=== PATIENT | male | born 1980 | race Caucasian/White ===

== ENCOUNTER 2016-07-25 16:23 | Inpatient (IN) | payer MEDICAID, OTHER ==
[~2016-07-25] VITALS: Ht 193 cm; Wt 90.0 kg
[2016-07-25] MEDS ORDERED: SERT100T12 PO (16:37)
[2016-07-25] MEDS ORDERED: BACL10TA PO (16:37)
[2016-07-25] MEDS ORDERED: DIVA250T25 PO (16:37)
[2016-07-25] MEDS ORDERED: MET500 PO (16:37)
[2016-07-25] MEDS ORDERED: ACYC200C PO (16:37)
[2016-07-25] MEDS ORDERED: TRAZ-147 PO (16:37)
[2016-07-25] MEDS ORDERED: QUET200T PO (16:37)
[2016-07-25 16:46] LABS: BASOPHILS # (AUTO) 0.06 K/uL (0.00-0.20); BASOPHILS % (AUTO) 0.8 % (0.0-2.0); EOSINOPHILS # (AUTO) 0.04 K/uL (0.00-0.70); EOSINOPHILS % (AUTO) 0.45 % (1.0-6.0); HEMOGLOBIN 15.4 g/dL (13.5-17.5); LYMPHOCYTES # (AUTO) 2.8 K/uL (1.0-4.8); LYMPHOCYTES % (AUTO) 34.6 % (22.0-44.0); MEAN CORPUSCULAR HEMOGLOBIN 30.9 pg (26.0-34.0); MEAN CORPUSCULAR HGB CONC 32.8 G/dL (31.0-37.0); MEAN CORPUSCULAR VOLUME 94 fL (80-100); MONOCYTES # (AUTO) 0.5 K/uL (0.1-1.0); MONOCYTES % (AUTO) 6.7 % (2.0-9.0); NEUTROPHILS # (AUTO) 4.6 K/uL (1.8-7.7); NEUTROPHILS % (AUTO) 57.5 % (40.0-70.0); PLATELET COUNT (AUTO) 206 K/uL (150-450); RED BLOOD CELL COUNT(AUTO) 4.99 MIL/uL (4.50-5.90); RED CELL DISTRIBUTION WIDTH 13.9 % (11.5-14.5)
[2016-07-25 17:26] LABS: ANION GAP 12 mmol/L (8-16); CALCIUM, TOTAL 8.4 mg/dL (8.8-10.5); CARBON DIOXIDE 28 mmol/L (22-29); CHLORIDE 104 mmol/L (98-107); CREATININE 1.02 mg/dL (0.60-1.30); GLOMERULAR FILTR. RATE CALC > 60 mL/min (>60); POTASSIUM 3.4 mmol/L (3.5-5.1); SODIUM SERUM 144 mmol/L (136-145); UREA NITROGEN, BLOOD 6 mg/dL (7-18)
[2016-07-25 17:33] LABS: ALANINE AMINOTRANSFERASE 41 U/L (12-78); ALBUMIN 4.3 g/dL (3.4-5.0); ASPARTATE AMINOTRANSFERASE 24 U/L (15-37); BILIRUBIN,TOTAL 0.4 mg/dL (0.1-1.0); TOTAL PROTEIN, SERUM 7.8 g/dL (6.4-8.2)
[2016-07-25] MEDS ORDERED: LORazepam 2 MG/ML VIAL IM ONE (18:15)
[2016-07-25] MEDS ORDERED: ZOLPIDEM TARTRATE 10 MG TABLET PO PRN (18:15)
[2016-07-25] MEDS ORDERED: HALOPERIDOL LACTATE 5 MG/ML VIAL IM ONE (18:15)
[2016-07-25] MEDS ORDERED: POTASSIUM CHLORIDE 20 MEQ ER TABLET PO ONE (18:30)
[2016-07-26] VITALS (9 sets, daily range): BP systolic 123–143; BP diastolic 76–91
[2016-07-26] MEDS: LORazepam 2 MG TABLET PO PRN ×5 (03:38→17:44)
[2016-07-26 07:41] LABS: CHOL/HDL RATIO 2.6 (4.2-7.3)
[2016-07-26] MEDS: NICOTINE 14 MG/24 HOUR PATCH TD SCH (08:53)
[2016-07-26] MEDS: HALOPERIDOL 5 MG TABLET PO PRN ×2 (08:56→16:16)
[2016-07-26] MEDS ORDERED: ACETAMINOPHEN 325 MG TABLET PO PRN ×2 (11:15→22:00)
[2016-07-26] MEDS: SERTRALINE HCL 100 MG TABLET PO SCH (12:02)
[2016-07-26] MEDS: DIVALPROEX SODIUM 500 MG DR TABLET PO SCH ×2 (12:02→16:15)
[2016-07-26] MEDS ORDERED: LOPERAMIDE HCL 2 MG CAPSULE PO PRN (14:00)
[2016-07-26] MEDS ORDERED: HydrOXYzine PAMOATE 50 MG CAPSULE PO PRN (14:00)
[2016-07-26] MEDS ORDERED: GuaiFENesin/D-METHORPHAN [SUGAR-FREE] 200-20MG/10 ML SYRUP UDCUP PO PRN (14:00)
[2016-07-26] MEDS ORDERED: CYANOCOBALAMIN 1,000 MCG/ML VIAL IM ONE (14:00)
[2016-07-26] MEDS: FOLIC ACID 1 MG TABLET PO SCH (14:19)
[2016-07-26] MEDS: MULTIVITAMINS WITH MINERALS, THERAPEUTIC TABLET PO SCH (14:19)
[2016-07-26] MEDS: THIAMINE HCL 100 MG TABLET PO SCH (16:15)
[2016-07-26] MEDS: QUEtiapine FUMARATE 200 MG TABLET PO SCH (20:22)
[2016-07-26] MEDS ORDERED: POTASSIUM CHLORIDE 10 MEQ ER TABLET PO ONE (22:00)
[2016-07-27] VITALS (7 sets, daily range): BP systolic 123–139; BP diastolic 68–86
[2016-07-27] MEDS ORDERED: LORazepam 2 MG TABLET PO PRN (07:00)
[2016-07-27 08:28] LABS: HEMOGLOBIN A1C 5.6 % (4.5-6.2)
[2016-07-27 08:47] LABS: POTASSIUM 3.5 mmol/L (3.5-5.1); THYROID STIMULATING HORMONE 1.51 uIU/mL (0.36-3.74)
[2016-07-27] MEDS: FOLIC ACID 1 MG TABLET PO SCH (08:56)
[2016-07-27] MEDS: SERTRALINE HCL 100 MG TABLET PO SCH (08:56)
[2016-07-27] MEDS: MULTIVITAMINS WITH MINERALS, THERAPEUTIC TABLET PO SCH (08:56)
[2016-07-27] MEDS: NICOTINE 14 MG/24 HOUR PATCH TD SCH (08:56)
[2016-07-27] MEDS: THIAMINE HCL 100 MG TABLET PO SCH ×2 (08:56→16:34)
[2016-07-27] MEDS: LORazepam 2 MG TABLET PO SCH ×3 (08:56→16:43)
[2016-07-27] MEDS: DIVALPROEX SODIUM 500 MG DR TABLET PO SCH ×2 (08:56→16:34)
[2016-07-27] MEDS: HALOPERIDOL 5 MG TABLET PO PRN ×2 (12:36→16:43)
[2016-07-27] MEDS: QUEtiapine FUMARATE 200 MG TABLET PO SCH (20:10)
[2016-07-27] MEDS: IBUPROFEN 400 MG TABLET PO PRN (21:05)
[2016-07-28 00:52] VITALS: BP 108/60
[2016-07-28 08:09] VITALS: BP 111/72
[2016-07-28] MEDS: NICOTINE 14 MG/24 HOUR PATCH TD SCH (08:32)
[2016-07-28] MEDS: DIVALPROEX SODIUM 500 MG DR TABLET PO SCH ×2 (08:33→16:28)
[2016-07-28] MEDS: MULTIVITAMINS WITH MINERALS, THERAPEUTIC TABLET PO SCH (08:33)
[2016-07-28] MEDS: FOLIC ACID 1 MG TABLET PO SCH (08:33)
[2016-07-28] MEDS: SERTRALINE HCL 100 MG TABLET PO SCH (08:33)
[2016-07-28] MEDS: LORazepam 2 MG TABLET PO SCH ×3 (08:33→16:28)
[2016-07-28] MEDS: THIAMINE HCL 100 MG TABLET PO SCH ×2 (08:33→16:28)
[2016-07-28 13:25] VITALS: BP 125/76
[2016-07-28 14:26] VITALS: BP 122/75
[2016-07-28 16:00] VITALS: BP 122/77
[2016-07-28] MEDS: HALOPERIDOL 5 MG TABLET PO PRN (16:50)
[2016-07-28] MEDS: QUEtiapine FUMARATE 200 MG TABLET PO SCH (20:04)
[2016-07-29 00:39] VITALS: BP 102/64
[2016-07-29] MEDS ORDERED: LORazepam 1 MG TABLET PO PRN (07:00)
[2016-07-29 08:11] VITALS: BP 115/65
[2016-07-29] MEDS: THIAMINE HCL 100 MG TABLET PO SCH (08:23)
[2016-07-29] MEDS: DIVALPROEX SODIUM 500 MG DR TABLET PO SCH (08:23)
[2016-07-29] MEDS: NICOTINE 14 MG/24 HOUR PATCH TD SCH (08:23)
[2016-07-29] MEDS: SERTRALINE HCL 100 MG TABLET PO SCH (08:23)
[2016-07-29] MEDS: MULTIVITAMINS WITH MINERALS, THERAPEUTIC TABLET PO SCH (08:23)
[2016-07-29] MEDS: FOLIC ACID 1 MG TABLET PO SCH (08:24)
[2016-07-29] MEDS ORDERED: LORazepam 1 MG TABLET PO SCH (09:00)
[2016-07-29] MEDS ORDERED: LORazepam 2 MG TABLET PO SCH (09:00)
[2016-07-29 10:18] VITALS: BP 110/67
[2016-07-29] MEDS: IBUPROFEN 400 MG TABLET PO PRN (10:19)
[2016-07-29 11:19] VITALS: BP 112/65
[2016-07-30] MEDS ORDERED: LORazepam 1 MG TABLET PO PRN (07:00)
[2016-07-30] MEDS ORDERED: LORazepam 2 MG TABLET PO SCH (09:00)
== END 2016-07-29 14:40 | disposition home or self-care (01) | DRG 750 ==
LOC: EMS 16:25 → B2S 18:47
PROVIDERS: ADMIT Psychiatry & Neurology Psychiatry
PROC: HZ2ZZZZ Detoxification Services for Substance Abuse Treatment (ICD-10-PCS; principal; 2016-07-26)
DX: F25.1 Schizoaffective disorder, depressive type (principal); R45.851 Suicidal ideations; F10.129 Alcohol abuse with intoxication, unspecified; Y90.8 Blood alcohol level of 240 mg/100 ml or more; F17.200 Nicotine dependence, unspecified, uncomplicated; R00.0 Tachycardia, unspecified; E87.6 Hypokalemia; E78.5 Hyperlipidemia, unspecified; Z88.8 Allergy status to other drugs, medicaments and biological substances
CPT/HCPCS: 83036; 84132; 84443; 96372; 99285; G0480; J1630; J2060; J3420

== ENCOUNTER 2017-04-07 11:29 | Inpatient (IN) | payer MEDICAID, OTHER ==
[~2017-04-07] VITALS: Ht 193 cm; Wt 96.1 kg
[~2017-04-07 11:29] MED LIST: DIVA250T25 PO; QUET200T PO; SERT100T12 PO
[2017-04-07] MEDS ORDERED: LORazepam 0.5 MG TABLET PO ONE (12:15)
[2017-04-07] MEDS ORDERED: SULFAMETHOX/TRIMETH DS 800-160 MG/TABLET PO ONE (12:15)
[2017-04-07] MEDS ORDERED: CEPHALEXIN MONOHYDRATE 500 MG CAPSULE PO ONE (12:15)
[2017-04-07 12:32] LABS: BASOPHILS % (AUTO) 0.3 % (0.0-2.0); EOSINOPHILS % (AUTO) 0.6 % (1.0-6.0); HEMATOCRIT 41.7 % (41-53); HEMOGLOBIN 13.9 g/dL (13.5-17.5); LYMPHOCYTES # (AUTO) 1.7 K/uL (1.0-4.8); LYMPHOCYTES % (AUTO) 24.9 % (22.0-44.0); MEAN CORPUSCULAR HEMOGLOBIN 30.5 pg (26.0-34.0); MEAN CORPUSCULAR HGB CONC 33.3 G/dL (31.0-37.0); MEAN CORPUSCULAR VOLUME 92 fL (80-100); MONOCYTES # (AUTO) 0.7 K/uL (0.1-1.0); MONOCYTES % (AUTO) 10.5 % (2.0-9.0); NEUTROPHILS # (AUTO) 4.4 K/uL (1.8-7.7); NEUTROPHILS % (AUTO) 63.7 % (40.0-70.0); PLATELET COUNT (AUTO) 287 K/uL (150-450); RED BLOOD CELL COUNT(AUTO) 4.55 MIL/uL (4.50-5.90); RED CELL DISTRIBUTION WIDTH 13.8 % (11.5-14.5)
[2017-04-07 12:48] LABS: ANION GAP 7 mmol/L (8-16); CALCIUM, TOTAL 9.4 mg/dL (8.8-10.5); CARBON DIOXIDE 27 mmol/L (22-29); CHLORIDE 98 mmol/L (98-107); CREATININE 1.01 mg/dL (0.60-1.30); GLOMERULAR FILTR. RATE CALC > 60 mL/min (>60); GLUCOSE,RANDOM 91 mg/dL (70-110); POTASSIUM 4.5 mmol/L (3.5-5.1); SODIUM SERUM 132 mmol/L (136-145); UREA NITROGEN, BLOOD 20 mg/dL (7-18)
[2017-04-07 12:52] LABS: ALANINE AMINOTRANSFERASE 37 U/L (12-78); ALBUMIN 3.8 g/dL (3.4-5.0); ALKALINE PHOSPHATASE 56 U/L (46-116); ASPARTATE AMINOTRANSFERASE 32 U/L (15-37); BILIRUBIN,TOTAL 0.4 mg/dL (0.1-1.0); TOTAL PROTEIN, SERUM 7.9 g/dL (6.4-8.2)
[2017-04-07 12:57] LABS: AMPHET/METH SCREEN,URINE NEGATIVE (NEGATIVE); BARBITURATE SCREEN, URINE NEGATIVE (NEGATIVE); BENZODIAZEPINES SCREEN,URINE NEGATIVE (NEGATIVE); CANNABINOID SCREEN,URINE POSITIVE (NEGATIVE); COCAINE SCREEN,URINE NEGATIVE (NEGATIVE); METHADONE SCREEN, URINE NEGATIVE (NEGATIVE); OPIATE SCREEN,URINE NEGATIVE (NEGATIVE)
[2017-04-07 12:59] LABS: PHENCYCLIDINE SCREEN,URINE NEGATIVE (NEGATIVE)
[2017-04-07] MEDS: HALOPERIDOL 5 MG TABLET PO PRN (14:34)
[2017-04-07 15:30] VITALS: BP 119/66
[2017-04-07 16:00] VITALS: BP 120/76
[2017-04-07] MEDS: LORazepam 2 MG TABLET PO PRN (16:22)
[2017-04-07 17:03] VITALS: BP 117/78
[2017-04-07 18:03] VITALS: BP 107/60
[2017-04-07] MEDS ORDERED: MAG HYDROX/AL HYDROX/SIMETH ES 30 ML SUSPENSION UDCUP PO PRN (18:15)
[2017-04-07] MEDS ORDERED: CloNIDine HCL 0.1 MG TABLET PO PRN (18:15)
[2017-04-07] MEDS ORDERED: BENZOCAINE/MENTHOL LOZENGE MM PRN (18:15)
[2017-04-07] MEDS ORDERED: PETROLATUM,WHITE 71 GM JELLY TP PRN (18:15)
[2017-04-07] MEDS ORDERED: MAGNESIUM HYDROXIDE SUSPENSION 30 ML UDCUP PO PRN (18:15)
[2017-04-07] MEDS ORDERED: ALBUTEROL SULFATE HFA 90 MCG/PUFF 8 GM INHALER IH PRN (18:15)
[2017-04-07] MEDS ORDERED: ONDANSETRON HCL 4 MG TABLET PO PRN (18:15)
[2017-04-07] MEDS ORDERED: LOPERAMIDE HCL 2 MG CAPSULE PO PRN (18:15)
[2017-04-07] MEDS ORDERED: BACITRACIN 28.4 GM OINTMENT TP PRN (18:15)
[2017-04-07 19:03] VITALS: BP 110/65
[2017-04-07 20:00] VITALS: BP 123/62
[2017-04-07] MEDS: QUEtiapine FUMARATE 200 MG TABLET PO SCH (20:16)
[2017-04-07] MEDS: DOCUSATE SODIUM 100 MG CAPSULE PO SCH (20:17)
[2017-04-08] MEDS: CEPHALEXIN MONOHYDRATE 500 MG CAPSULE PO SCH ×3 (00:37→16:52)
[2017-04-08 04:01] VITALS: BP 102/62
[2017-04-08 08:25] LABS: HEMOGLOBIN A1C 5.1 % (4.5-6.2)
[2017-04-08] MEDS: DOCUSATE SODIUM 100 MG CAPSULE PO SCH (08:28)
[2017-04-08] MEDS: OMEPRAZOLE 20 MG CAPSULE PO SCH (08:28)
[2017-04-08] MEDS: SULFAMETHOX/TRIMETH DS 800-160 MG/TABLET PO SCH ×2 (08:29→16:52)
[2017-04-08 08:43] LABS: CHOL/HDL RATIO 3.1 (4.2-7.3); FREE T4 (FREE THYROXINE) 0.69 ng/dL (0.76-1.46); THYROID STIMULATING HORMONE 0.87 uIU/mL (0.36-3.74)
[2017-04-08] MEDS ORDERED: DIVALPROEX SODIUM 500 MG DR TABLET PO SCH (09:00)
[2017-04-08] MEDS: LORazepam 2 MG TABLET PO PRN ×2 (09:16→14:56)
[2017-04-08] MEDS: HALOPERIDOL 5 MG TABLET PO PRN ×2 (09:31→14:56)
[2017-04-08] MEDS: QUEtiapine FUMARATE 200 MG TABLET PO SCH ×3 (11:00→20:19)
[2017-04-08] MEDS ORDERED: SODIUM CHLORIDE 1 GM TABLET PO SCH (11:00)
[2017-04-08] MEDS: MUPIROCIN CALCIUM 2% 15 GM CREAM TP SCH (12:22)
[2017-04-08 16:12] VITALS: BP 128/67
[2017-04-08] MEDS: DIVALPROEX SODIUM 500 MG DR TABLET PO SCH (16:52)
[2017-04-08] MEDS ORDERED: SODIUM CHLORIDE 1 GM TABLET PO ONE (17:00)
[2017-04-08] MEDS: TraMADol HCL 50 MG TABLET PO PRN (17:50)
[2017-04-08] MEDS: ZOLPIDEM TARTRATE 10 MG TABLET PO PRN (21:59)
[2017-04-09] MEDS: CEPHALEXIN MONOHYDRATE 500 MG CAPSULE PO SCH ×3 (00:15→16:02)
[2017-04-09 06:43] VITALS: BP 100/68
[2017-04-09] MEDS: SULFAMETHOX/TRIMETH DS 800-160 MG/TABLET PO SCH ×2 (08:41→16:02)
[2017-04-09] MEDS: DIVALPROEX SODIUM 500 MG DR TABLET PO SCH ×2 (08:50→16:02)
[2017-04-09] MEDS: DOCUSATE SODIUM 100 MG CAPSULE PO SCH (08:51)
[2017-04-09] MEDS: OMEPRAZOLE 20 MG CAPSULE PO SCH (08:51)
[2017-04-09] MEDS: MUPIROCIN CALCIUM 2% 15 GM CREAM TP SCH (08:51)
[2017-04-09] MEDS: QUEtiapine FUMARATE 200 MG TABLET PO SCH ×3 (08:51→21:09)
[2017-04-09] MEDS: LORazepam 2 MG TABLET PO PRN ×3 (09:19→21:29)
[2017-04-09] MEDS: HALOPERIDOL 5 MG TABLET PO PRN ×2 (09:19→17:50)
[2017-04-09 09:20] VITALS: BP 112/69
[2017-04-09] MEDS: TraMADol HCL 50 MG TABLET PO PRN ×2 (09:20→16:10)
[2017-04-09 16:06] VITALS: BP 125/80
[2017-04-09 16:07] VITALS: BP 125/80
[2017-04-10] MEDS: CEPHALEXIN MONOHYDRATE 500 MG CAPSULE PO SCH ×4 (00:01→23:42)
[2017-04-10 01:14] VITALS: BP 106/60
[2017-04-10 08:16] VITALS: BP 108/68
[2017-04-10 08:17] VITALS: BP 108/68
[2017-04-10] MEDS: SULFAMETHOX/TRIMETH DS 800-160 MG/TABLET PO SCH ×2 (08:25→16:28)
[2017-04-10] MEDS: DOCUSATE SODIUM 100 MG CAPSULE PO SCH (08:25)
[2017-04-10] MEDS: QUEtiapine FUMARATE 200 MG TABLET PO SCH ×3 (08:25→20:40)
[2017-04-10] MEDS: OMEPRAZOLE 20 MG CAPSULE PO SCH (08:25)
[2017-04-10] MEDS: DIVALPROEX SODIUM 500 MG DR TABLET PO SCH ×2 (08:25→16:28)
[2017-04-10] MEDS: MUPIROCIN CALCIUM 2% 15 GM CREAM TP SCH (08:32)
[2017-04-10] MEDS: LORazepam 2 MG TABLET PO PRN ×2 (08:38→16:08)
[2017-04-10] MEDS: TraMADol HCL 50 MG TABLET PO PRN (08:38)
[2017-04-10] MEDS ORDERED: DIVA500T35 PO (11:53)
[2017-04-10 16:00] VITALS: BP 118/64
[2017-04-10] MEDS: HALOPERIDOL 5 MG TABLET PO PRN (16:08)
[2017-04-10 16:46] VITALS: BP 118/64
[2017-04-10] MEDS: TraZODone HCL 150 MG TABLET PO SCH (20:40)
[2017-04-10] MEDS: ZOLPIDEM TARTRATE 10 MG TABLET PO PRN (20:40)
[2017-04-10 23:41] VITALS: BP 121/68
[2017-04-11 04:00] VITALS: BP 105/67
[2017-04-11] MEDS: HALOPERIDOL 5 MG TABLET PO PRN (04:05)
[2017-04-11] MEDS: LORazepam 2 MG TABLET PO PRN ×2 (04:05→16:03)
[2017-04-11] MEDS: TraMADol HCL 50 MG TABLET PO PRN ×2 (07:13→16:04)
[2017-04-11] MEDS: DIVALPROEX SODIUM 500 MG DR TABLET PO SCH ×2 (08:12→16:02)
[2017-04-11] MEDS: DOCUSATE SODIUM 100 MG CAPSULE PO SCH (08:12)
[2017-04-11] MEDS: CEPHALEXIN MONOHYDRATE 500 MG CAPSULE PO SCH ×2 (08:12→16:02)
[2017-04-11] MEDS: OMEPRAZOLE 20 MG CAPSULE PO SCH (08:12)
[2017-04-11] MEDS: QUEtiapine FUMARATE 200 MG TABLET PO SCH ×3 (08:12→20:31)
[2017-04-11] MEDS: SERTRALINE HCL 100 MG TABLET PO SCH (08:12)
[2017-04-11] MEDS: SULFAMETHOX/TRIMETH DS 800-160 MG/TABLET PO SCH ×2 (08:12→16:02)
[2017-04-11] MEDS: MUPIROCIN CALCIUM 2% 15 GM CREAM TP SCH (08:14)
[2017-04-11 08:18] VITALS: BP 113/64
[2017-04-11 16:00] VITALS: BP 110/60
[2017-04-11 16:04] VITALS: BP 110/60
[2017-04-11] MEDS: TraZODone HCL 150 MG TABLET PO SCH (20:31)
[2017-04-12] MEDS: CEPHALEXIN MONOHYDRATE 500 MG CAPSULE PO SCH ×4 (00:04→23:40)
[2017-04-12 05:51] VITALS: BP 116/80
[2017-04-12] MEDS: DIVALPROEX SODIUM 500 MG DR TABLET PO SCH ×2 (08:32→16:10)
[2017-04-12] MEDS: DOCUSATE SODIUM 100 MG CAPSULE PO SCH (08:32)
[2017-04-12] MEDS: QUEtiapine FUMARATE 200 MG TABLET PO SCH ×3 (08:32→21:10)
[2017-04-12] MEDS: SULFAMETHOX/TRIMETH DS 800-160 MG/TABLET PO SCH ×2 (08:32→16:10)
[2017-04-12] MEDS: SERTRALINE HCL 100 MG TABLET PO SCH (08:32)
[2017-04-12] MEDS: OMEPRAZOLE 20 MG CAPSULE PO SCH (08:33)
[2017-04-12] MEDS: MUPIROCIN CALCIUM 2% 15 GM CREAM TP SCH (08:33)
[2017-04-12 09:23] VITALS: BP 104/61
[2017-04-12 10:00] VITALS: BP 112/68
[2017-04-12] MEDS: HALOPERIDOL 5 MG TABLET PO PRN ×2 (10:00→17:01)
[2017-04-12] MEDS: LORazepam 2 MG TABLET PO PRN ×2 (10:00→17:01)
[2017-04-12] MEDS: TraMADol HCL 50 MG TABLET PO PRN ×2 (10:00→17:01)
[2017-04-12 16:01] VITALS: BP 119/75
[2017-04-12 17:01] VITALS: BP 122/76
[2017-04-12] MEDS: ZOLPIDEM TARTRATE 10 MG TABLET PO PRN (21:09)
[2017-04-12] MEDS: TraZODone HCL 150 MG TABLET PO SCH (21:09)
[2017-04-12 22:39] VITALS: BP 106/59
[2017-04-13 03:08] VITALS: BP 112/63
[2017-04-13] MEDS: TraMADol HCL 50 MG TABLET PO PRN ×3 (03:13→18:42)
[2017-04-13] MEDS: HALOPERIDOL 5 MG TABLET PO PRN ×3 (03:13→16:04)
[2017-04-13] MEDS: DIVALPROEX SODIUM 500 MG DR TABLET PO SCH ×2 (10:16→16:03)
[2017-04-13] MEDS: CEPHALEXIN MONOHYDRATE 500 MG CAPSULE PO SCH ×2 (10:16→16:03)
[2017-04-13] MEDS: DOCUSATE SODIUM 100 MG CAPSULE PO SCH (10:16)
[2017-04-13] MEDS: OMEPRAZOLE 20 MG CAPSULE PO SCH (10:16)
[2017-04-13] MEDS: SERTRALINE HCL 100 MG TABLET PO SCH (10:17)
[2017-04-13] MEDS: QUEtiapine FUMARATE 200 MG TABLET PO SCH ×3 (10:17→20:09)
[2017-04-13] MEDS: LORazepam 2 MG TABLET PO PRN ×2 (10:30→16:04)
[2017-04-13 10:35] VITALS: BP 106/68
[2017-04-13] MEDS: MUPIROCIN CALCIUM 2% 15 GM CREAM TP SCH (10:41)
[2017-04-13] MEDS: ACETAMINOPHEN 325 MG TABLET PO PRN (14:09)
[2017-04-13 18:40] VITALS: BP 116/69
[2017-04-13 19:40] VITALS: BP 120/71
[2017-04-13] MEDS: TraZODone HCL 150 MG TABLET PO SCH (20:10)
[2017-04-13] MEDS: ZOLPIDEM TARTRATE 10 MG TABLET PO PRN (20:37)
[2017-04-14] MEDS: CEPHALEXIN MONOHYDRATE 500 MG CAPSULE PO SCH ×3 (00:48→16:28)
[2017-04-14 01:00] VITALS: BP 118/70
[2017-04-14] MEDS: QUEtiapine FUMARATE 200 MG TABLET PO SCH ×2 (09:27→16:28)
[2017-04-14] MEDS: OMEPRAZOLE 20 MG CAPSULE PO SCH (09:27)
[2017-04-14] MEDS: DOCUSATE SODIUM 100 MG CAPSULE PO SCH (09:28)
[2017-04-14] MEDS: SERTRALINE HCL 100 MG TABLET PO SCH (09:28)
[2017-04-14] MEDS: DIVALPROEX SODIUM 500 MG DR TABLET PO SCH ×2 (09:28→16:28)
[2017-04-14] MEDS: TraMADol HCL 50 MG TABLET PO PRN (09:31)
[2017-04-14] MEDS: HALOPERIDOL 5 MG TABLET PO PRN ×2 (09:32→16:44)
[2017-04-14] MEDS: LORazepam 2 MG TABLET PO PRN ×2 (09:32→16:44)
[2017-04-14 10:33] VITALS: BP 122/72
[2017-04-14 16:50] VITALS: BP 119/75
[2017-04-14] MEDS: TraZODone HCL 150 MG TABLET PO SCH (20:02)
[2017-04-14] MEDS ORDERED: QUEtiapine FUMARATE 300 MG TABLET PO ONE (21:00)
[2017-04-15] MEDS: DIVALPROEX SODIUM 500 MG DR TABLET PO SCH ×2 (08:53→17:19)
[2017-04-15] MEDS: DOCUSATE SODIUM 100 MG CAPSULE PO SCH (08:53)
[2017-04-15] MEDS: QUEtiapine FUMARATE 200 MG TABLET PO SCH ×2 (08:54→17:19)
[2017-04-15] MEDS: OMEPRAZOLE 20 MG CAPSULE PO SCH (08:54)
[2017-04-15] MEDS: SERTRALINE HCL 100 MG TABLET PO SCH (08:55)
[2017-04-15] MEDS: HALOPERIDOL 5 MG TABLET PO PRN ×2 (08:57→18:48)
[2017-04-15] MEDS: TraMADol HCL 50 MG TABLET PO PRN (08:57)
[2017-04-15 08:58] VITALS: BP 98/57
[2017-04-15 09:58] VITALS: BP 102/59
[2017-04-15] MEDS: LORazepam 2 MG TABLET PO PRN ×2 (11:16→18:48)
[2017-04-15 20:05] VITALS: BP 137/80
[2017-04-15] MEDS: TraZODone HCL 150 MG TABLET PO SCH (20:05)
[2017-04-16] VITALS (7 sets, daily range): BP systolic 111–124; BP diastolic 62–79
[2017-04-16] MEDS: ZOLPIDEM TARTRATE 10 MG TABLET PO PRN (02:33)
[2017-04-16] MEDS: QUEtiapine FUMARATE 200 MG TABLET PO SCH ×2 (09:40→16:09)
[2017-04-16] MEDS: DOCUSATE SODIUM 100 MG CAPSULE PO SCH (09:40)
[2017-04-16] MEDS: SERTRALINE HCL 100 MG TABLET PO SCH (09:41)
[2017-04-16] MEDS: OMEPRAZOLE 20 MG CAPSULE PO SCH (09:41)
[2017-04-16] MEDS: DIVALPROEX SODIUM 500 MG DR TABLET PO SCH ×2 (09:41→16:09)
[2017-04-16] MEDS: HALOPERIDOL 5 MG TABLET PO PRN (12:29)
[2017-04-16] MEDS: LORazepam 2 MG TABLET PO PRN ×2 (12:29→20:05)
[2017-04-16] MEDS: BACLOFEN 10 MG TABLET PO SCH (16:10)
[2017-04-16] MEDS: TraZODone HCL 150 MG TABLET PO SCH (20:04)
[2017-04-16] MEDS: HALOPERIDOL 10 MG TABLET PO SCH (20:04)
[2017-04-16] MEDS: ACETAMINOPHEN 325 MG TABLET PO PRN (20:05)
[2017-04-17 00:10] VITALS: BP 120/76
[2017-04-17] MEDS: ZOLPIDEM TARTRATE 10 MG TABLET PO PRN (00:13)
[2017-04-17] MEDS: LORazepam 2 MG TABLET PO PRN ×2 (00:14→17:43)
[2017-04-17 09:08] VITALS: BP 100/53
[2017-04-17] MEDS: OMEPRAZOLE 20 MG CAPSULE PO SCH (09:56)
[2017-04-17] MEDS: DIVALPROEX SODIUM 500 MG DR TABLET PO SCH ×2 (09:56→17:46)
[2017-04-17] MEDS: BACLOFEN 10 MG TABLET PO SCH ×3 (09:56→17:46)
[2017-04-17] MEDS: ACYCLOVIR 800 MG TABLET PO SCH (09:57)
[2017-04-17] MEDS: DOCUSATE SODIUM 100 MG CAPSULE PO SCH (09:57)
[2017-04-17] MEDS: SERTRALINE HCL 100 MG TABLET PO SCH (09:57)
[2017-04-17] MEDS: QUEtiapine FUMARATE 200 MG TABLET PO SCH ×2 (10:01→17:46)
[2017-04-17] MEDS: HALOPERIDOL 5 MG TABLET PO PRN ×2 (11:15→17:43)
[2017-04-17 18:49] VITALS: BP 101/61
[2017-04-17 19:58] VITALS: BP 131/79
[2017-04-17] MEDS: TraMADol HCL 50 MG TABLET PO PRN (19:59)
[2017-04-17] MEDS: TraZODone HCL 150 MG TABLET PO SCH (20:12)
[2017-04-17] MEDS: HALOPERIDOL 10 MG TABLET PO SCH (20:12)
[2017-04-17 20:58] VITALS: BP 124/78
[2017-04-18 00:20] VITALS: BP 123/75
[2017-04-18] MEDS: ZOLPIDEM TARTRATE 10 MG TABLET PO PRN (00:25)
[2017-04-18] MEDS: SERTRALINE HCL 100 MG TABLET PO SCH (08:17)
[2017-04-18] MEDS: DOCUSATE SODIUM 100 MG CAPSULE PO SCH (08:18)
[2017-04-18] MEDS: BACLOFEN 10 MG TABLET PO SCH ×3 (08:18→16:49)
[2017-04-18] MEDS: QUEtiapine FUMARATE 200 MG TABLET PO SCH ×2 (08:18→16:49)
[2017-04-18] MEDS: DIVALPROEX SODIUM 500 MG DR TABLET PO SCH ×2 (08:18→16:49)
[2017-04-18] MEDS: ACYCLOVIR 800 MG TABLET PO SCH (08:18)
[2017-04-18] MEDS: OMEPRAZOLE 20 MG CAPSULE PO SCH (08:19)
[2017-04-18] MEDS: HALOPERIDOL 5 MG TABLET PO PRN ×2 (08:21→16:48)
[2017-04-18] MEDS: LORazepam 2 MG TABLET PO PRN ×2 (08:21→16:49)
[2017-04-18 10:54] VITALS: BP 108/59
[2017-04-18 18:32] VITALS: BP 120/72
[2017-04-18] MEDS: TraZODone HCL 150 MG TABLET PO SCH (21:55)
[2017-04-18] MEDS: HALOPERIDOL 10 MG TABLET PO SCH (21:55)
[2017-04-19] MEDS: ZOLPIDEM TARTRATE 10 MG TABLET PO PRN (00:02)
[2017-04-19] MEDS: LORazepam 2 MG TABLET PO PRN ×3 (00:02→16:05)
[2017-04-19 00:03] VITALS: BP 112/68
[2017-04-19 08:05] VITALS: BP 123/70
[2017-04-19] MEDS: OMEPRAZOLE 20 MG CAPSULE PO SCH (10:08)
[2017-04-19] MEDS: BACLOFEN 10 MG TABLET PO SCH ×3 (10:08→16:05)
[2017-04-19] MEDS: DIVALPROEX SODIUM 500 MG DR TABLET PO SCH ×2 (10:08→16:03)
[2017-04-19] MEDS: DOCUSATE SODIUM 100 MG CAPSULE PO SCH (10:08)
[2017-04-19] MEDS: ACYCLOVIR 800 MG TABLET PO SCH (10:09)
[2017-04-19] MEDS: QUEtiapine FUMARATE 200 MG TABLET PO SCH ×2 (10:09→16:03)
[2017-04-19] MEDS: SERTRALINE HCL 100 MG TABLET PO SCH (10:09)
[2017-04-19] MEDS: HALOPERIDOL 5 MG TABLET PO PRN ×2 (10:10→16:05)
[2017-04-19 17:30] VITALS: BP 110/70
[2017-04-19 20:06] VITALS: BP 129/70
[2017-04-19] MEDS: TraMADol HCL 50 MG TABLET PO PRN (20:07)
[2017-04-19] MEDS: TraZODone HCL 150 MG TABLET PO SCH (20:08)
[2017-04-19] MEDS: HALOPERIDOL 10 MG TABLET PO SCH (20:08)
[2017-04-19 21:06] VITALS: BP 130/78
[2017-04-20 03:15] VITALS: BP 99/66
[2017-04-20] MEDS: LORazepam 2 MG TABLET PO PRN ×3 (03:20→20:25)
[2017-04-20 10:04] VITALS: BP 105/65
[2017-04-20] MEDS: ACYCLOVIR 800 MG TABLET PO SCH (10:58)
[2017-04-20] MEDS: DIVALPROEX SODIUM 500 MG DR TABLET PO SCH ×2 (10:58→16:08)
[2017-04-20] MEDS: QUEtiapine FUMARATE 200 MG TABLET PO SCH ×2 (10:59→16:09)
[2017-04-20] MEDS: DOCUSATE SODIUM 100 MG CAPSULE PO SCH (11:00)
[2017-04-20] MEDS: BACLOFEN 10 MG TABLET PO SCH ×3 (11:00→17:27)
[2017-04-20] MEDS: SERTRALINE HCL 100 MG TABLET PO SCH (11:01)
[2017-04-20] MEDS: OMEPRAZOLE 20 MG CAPSULE PO SCH (11:01)
[2017-04-20] MEDS: IBUPROFEN 600 MG TABLET PO PRN (14:30)
[2017-04-20] MEDS: HALOPERIDOL 5 MG TABLET PO PRN (15:09)
[2017-04-20] MEDS: TraMADol HCL 50 MG TABLET PO PRN (16:09)
[2017-04-20 16:11] VITALS: BP 104/69
[2017-04-20] MEDS: TraZODone HCL 150 MG TABLET PO SCH (20:24)
[2017-04-20] MEDS: HALOPERIDOL 10 MG TABLET PO SCH (20:24)
[2017-04-21 03:45] VITALS: BP 109/67
[2017-04-21] MEDS: LORazepam 2 MG TABLET PO PRN ×2 (03:51→17:18)
[2017-04-21] MEDS: QUEtiapine FUMARATE 200 MG TABLET PO SCH ×2 (10:15→16:01)
[2017-04-21] MEDS: DIVALPROEX SODIUM 500 MG DR TABLET PO SCH ×2 (10:15→16:01)
[2017-04-21] MEDS: BACLOFEN 10 MG TABLET PO SCH ×3 (10:16→16:01)
[2017-04-21] MEDS: SERTRALINE HCL 100 MG TABLET PO SCH (10:16)
[2017-04-21] MEDS: ACYCLOVIR 800 MG TABLET PO SCH (10:17)
[2017-04-21] MEDS: HALOPERIDOL 10 MG TABLET PO SCH (10:19)
[2017-04-21] MEDS: HALOPERIDOL 5 MG TABLET PO PRN ×2 (10:22→17:18)
[2017-04-21] MEDS: OMEPRAZOLE 20 MG CAPSULE PO SCH (10:23)
[2017-04-21] MEDS: DOCUSATE SODIUM 100 MG CAPSULE PO SCH (10:23)
[2017-04-21 13:30] VITALS: BP 106/63
[2017-04-21 17:30] VITALS: BP 118/70
[2017-04-21] MEDS: TraZODone HCL 150 MG TABLET PO SCH (20:47)
[2017-04-21] MEDS ORDERED: HALOPERIDOL 5 MG TABLET PO SCH (21:00)
[2017-04-22 00:01] VITALS: BP 106/61
[2017-04-22] MEDS: ZOLPIDEM TARTRATE 10 MG TABLET PO PRN (00:02)
[2017-04-22] MEDS: LORazepam 2 MG TABLET PO PRN ×2 (00:02→15:32)
[2017-04-22] MEDS: DIVALPROEX SODIUM 500 MG DR TABLET PO SCH ×2 (09:13→17:41)
[2017-04-22] MEDS: BACLOFEN 10 MG TABLET PO SCH ×3 (09:13→17:41)
[2017-04-22] MEDS: DOCUSATE SODIUM 100 MG CAPSULE PO SCH (09:13)
[2017-04-22] MEDS: OMEPRAZOLE 20 MG CAPSULE PO SCH (09:14)
[2017-04-22] MEDS: QUEtiapine FUMARATE 200 MG TABLET PO SCH ×2 (09:14→17:41)
[2017-04-22] MEDS: ACYCLOVIR 800 MG TABLET PO SCH (09:15)
[2017-04-22] MEDS: SERTRALINE HCL 100 MG TABLET PO SCH (09:15)
[2017-04-22 09:46] VITALS: BP 131/74
[2017-04-22] MEDS ORDERED: LORazepam 2 MG/ML VIAL ONE (12:35)
[2017-04-22] MEDS ORDERED: DiphenhydrAMINE HCL 50 MG/ML VIAL ONE (12:36)
[2017-04-22] MEDS ORDERED: HALOPERIDOL LACTATE 5 MG/ML VIAL ONE (12:36)
[2017-04-22] MEDS ORDERED: HALOPERIDOL LACTATE 5 MG/ML VIAL IM ONE (12:45)
[2017-04-22] MEDS ORDERED: DiphenhydrAMINE HCL 50 MG/ML VIAL IM ONE (12:45)
[2017-04-22] MEDS ORDERED: LORazepam 2 MG/ML VIAL IM ONE (12:45)
[2017-04-22] MEDS: TraMADol HCL 50 MG TABLET PO PRN (13:09)
[2017-04-22] MEDS: HALOPERIDOL 5 MG TABLET PO PRN (15:32)
[2017-04-22 19:39] VITALS: BP 140/80
[2017-04-22] MEDS: TraZODone HCL 150 MG TABLET PO SCH (20:13)
[2017-04-22] MEDS: HALOPERIDOL 10 MG TABLET PO SCH (20:14)
[2017-04-23] MEDS: ZOLPIDEM TARTRATE 10 MG TABLET PO PRN (01:01)
[2017-04-23] MEDS: DIVALPROEX SODIUM 500 MG DR TABLET PO SCH ×2 (07:48→16:48)
[2017-04-23] MEDS: OMEPRAZOLE 20 MG CAPSULE PO SCH (07:48)
[2017-04-23] MEDS: IBUPROFEN 600 MG TABLET PO PRN (07:49)
[2017-04-23] MEDS: SERTRALINE HCL 100 MG TABLET PO SCH (07:49)
[2017-04-23] MEDS: DOCUSATE SODIUM 100 MG CAPSULE PO SCH (07:49)
[2017-04-23] MEDS: LORazepam 2 MG TABLET PO PRN ×2 (07:49→15:48)
[2017-04-23] MEDS: HALOPERIDOL 5 MG TABLET PO PRN ×2 (07:49→15:48)
[2017-04-23] MEDS: QUEtiapine FUMARATE 200 MG TABLET PO SCH ×2 (07:49→16:49)
[2017-04-23] MEDS: ACYCLOVIR 800 MG TABLET PO SCH (07:49)
[2017-04-23] MEDS: BACLOFEN 10 MG TABLET PO SCH ×3 (07:50→16:49)
[2017-04-23 08:16] VITALS: BP 142/77
[2017-04-23] MEDS: TraMADol HCL 50 MG TABLET PO PRN (15:50)
[2017-04-23 17:18] VITALS: BP 100/62
[2017-04-23] MEDS: HALOPERIDOL 10 MG TABLET PO SCH (21:32)
[2017-04-23] MEDS: TraZODone HCL 150 MG TABLET PO SCH (21:32)
[2017-04-24] MEDS: ZOLPIDEM TARTRATE 10 MG TABLET PO PRN (02:03)
[2017-04-24 08:54] VITALS: BP 111/69
[2017-04-24] MEDS: SERTRALINE HCL 100 MG TABLET PO SCH (09:15)
[2017-04-24] MEDS: DIVALPROEX SODIUM 500 MG DR TABLET PO SCH ×2 (09:15→17:57)
[2017-04-24] MEDS: OMEPRAZOLE 20 MG CAPSULE PO SCH (09:16)
[2017-04-24] MEDS: BACLOFEN 10 MG TABLET PO SCH ×3 (09:16→17:56)
[2017-04-24] MEDS: DOCUSATE SODIUM 100 MG CAPSULE PO SCH (09:18)
[2017-04-24] MEDS: QUEtiapine FUMARATE 200 MG TABLET PO SCH ×2 (09:18→17:57)
[2017-04-24] MEDS: ACYCLOVIR 800 MG TABLET PO SCH (09:18)
[2017-04-24] MEDS: HALOPERIDOL 5 MG TABLET PO PRN ×2 (09:40→16:17)
[2017-04-24] MEDS: LORazepam 2 MG TABLET PO PRN ×2 (09:40→16:17)
[2017-04-24] MEDS: TraZODone HCL 150 MG TABLET PO SCH (20:40)
[2017-04-24] MEDS: HALOPERIDOL 10 MG TABLET PO SCH (20:40)
[2017-04-25] MEDS: LORazepam 2 MG TABLET PO PRN ×3 (01:13→16:03)
[2017-04-25] MEDS: ZOLPIDEM TARTRATE 10 MG TABLET PO PRN (01:13)
[2017-04-25 01:15] VITALS: BP 104/69
[2017-04-25 08:32] VITALS: BP 96/55
[2017-04-25] MEDS: OMEPRAZOLE 20 MG CAPSULE PO SCH (08:43)
[2017-04-25] MEDS: DIVALPROEX SODIUM 500 MG DR TABLET PO SCH ×2 (08:43→17:57)
[2017-04-25] MEDS: DOCUSATE SODIUM 100 MG CAPSULE PO SCH (08:43)
[2017-04-25] MEDS: BACLOFEN 10 MG TABLET PO SCH ×3 (08:43→17:56)
[2017-04-25] MEDS: SERTRALINE HCL 100 MG TABLET PO SCH (08:44)
[2017-04-25] MEDS: QUEtiapine FUMARATE 200 MG TABLET PO SCH ×2 (08:44→17:56)
[2017-04-25] MEDS: ACYCLOVIR 800 MG TABLET PO SCH (08:44)
[2017-04-25] MEDS: HALOPERIDOL 5 MG TABLET PO PRN ×2 (10:09→16:03)
[2017-04-25 11:22] VITALS: BP 126/84
[2017-04-25] MEDS: TraMADol HCL 50 MG TABLET PO PRN (11:22)
[2017-04-25] MEDS: TraZODone HCL 150 MG TABLET PO SCH (20:21)
[2017-04-25] MEDS: HALOPERIDOL 10 MG TABLET PO SCH (20:22)
[2017-04-26] MEDS: ZOLPIDEM TARTRATE 10 MG TABLET PO PRN (01:03)
[2017-04-26] MEDS: LORazepam 2 MG TABLET PO PRN ×2 (01:05→14:36)
[2017-04-26 01:06] VITALS: BP 105/73
[2017-04-26 08:00] VITALS: BP 104/56
[2017-04-26] MEDS: DIVALPROEX SODIUM 500 MG DR TABLET PO SCH ×2 (09:12→16:54)
[2017-04-26] MEDS: BACLOFEN 10 MG TABLET PO SCH ×3 (09:12→16:55)
[2017-04-26] MEDS: OMEPRAZOLE 20 MG CAPSULE PO SCH (09:12)
[2017-04-26] MEDS: ACYCLOVIR 800 MG TABLET PO SCH (09:13)
[2017-04-26] MEDS: QUEtiapine FUMARATE 200 MG TABLET PO SCH ×2 (09:13→16:55)
[2017-04-26] MEDS: SERTRALINE HCL 100 MG TABLET PO SCH (09:13)
[2017-04-26] MEDS: DOCUSATE SODIUM 100 MG CAPSULE PO SCH (09:15)
[2017-04-26 14:36] VITALS: BP 134/74
[2017-04-26] MEDS: HALOPERIDOL 5 MG TABLET PO PRN (14:36)
[2017-04-26] MEDS: TraMADol HCL 50 MG TABLET PO PRN (16:10)
[2017-04-26 17:13] VITALS: BP 119/70
[2017-04-26] MEDS: TraZODone HCL 150 MG TABLET PO SCH (20:11)
[2017-04-26] MEDS: HALOPERIDOL 10 MG TABLET PO SCH (20:12)
[2017-04-27] MEDS: LORazepam 2 MG TABLET PO PRN ×3 (03:18→20:20)
[2017-04-27 03:19] VITALS: BP 111/67
[2017-04-27] MEDS: QUEtiapine FUMARATE 200 MG TABLET PO SCH ×2 (08:03→16:03)
[2017-04-27] MEDS: SERTRALINE HCL 100 MG TABLET PO SCH (08:03)
[2017-04-27] MEDS: BACLOFEN 10 MG TABLET PO SCH ×3 (08:04→16:03)
[2017-04-27] MEDS: DOCUSATE SODIUM 100 MG CAPSULE PO SCH (08:04)
[2017-04-27] MEDS: ACYCLOVIR 800 MG TABLET PO SCH (08:04)
[2017-04-27] MEDS: DIVALPROEX SODIUM 500 MG DR TABLET PO SCH ×2 (08:05→16:03)
[2017-04-27] MEDS: OMEPRAZOLE 20 MG CAPSULE PO SCH (08:05)
[2017-04-27 08:21] VITALS: BP 116/63
[2017-04-27] MEDS: HALOPERIDOL 5 MG TABLET PO PRN (16:05)
[2017-04-27 19:00] VITALS: BP 133/73
[2017-04-27] MEDS: TraMADol HCL 50 MG TABLET PO PRN (19:00)
[2017-04-27] MEDS: HALOPERIDOL 10 MG TABLET PO SCH (20:20)
[2017-04-27] MEDS: TraZODone HCL 150 MG TABLET PO SCH (20:21)
[2017-04-28 08:21] VITALS: BP 105/69
[2017-04-28] MEDS: BACLOFEN 10 MG TABLET PO SCH (08:39)
[2017-04-28] MEDS: DIVALPROEX SODIUM 500 MG DR TABLET PO SCH (08:39)
[2017-04-28] MEDS: OMEPRAZOLE 20 MG CAPSULE PO SCH (08:39)
[2017-04-28] MEDS: QUEtiapine FUMARATE 200 MG TABLET PO SCH (08:39)
[2017-04-28] MEDS: ACYCLOVIR 800 MG TABLET PO SCH (08:40)
[2017-04-28] MEDS: SERTRALINE HCL 100 MG TABLET PO SCH (08:40)
[2017-04-28] MEDS: DOCUSATE SODIUM 100 MG CAPSULE PO SCH (08:41)
[2017-04-28] MEDS ORDERED: ACYC800T PO (09:54)
[2017-04-28] MEDS ORDERED: DSS100 PO (09:54)
[2017-04-28] MEDS ORDERED: BACL10TA PO (09:54)
[2017-04-28] MEDS ORDERED: OMEP20 PO (09:54)
[2017-04-28] MEDS ORDERED: TRAZ150 PO (09:56)
[2017-04-28] MEDS ORDERED: HALO10 PO (09:56)
== END 2017-04-28 10:30 | disposition home or self-care (01) | DRG 750 ==
LOC: EMS 11:31 → B2S 13:10 → 3EI 04-12 22:32 → 3EC 04-22 13:48
PROVIDERS: ADMIT Psychiatry & Neurology Psychiatry; ATTEND Psychiatry & Neurology Psychiatry
DX: F25.9 Schizoaffective disorder, unspecified (principal); E87.1 Hypo-osmolality and hyponatremia; R45.851 Suicidal ideations; Z59.0 Homelessness; L02.414 Cutaneous abscess of left upper limb; G47.00 Insomnia, unspecified; F17.200 Nicotine dependence, unspecified, uncomplicated; F12.10 Cannabis abuse, uncomplicated; F14.90 Cocaine use, unspecified, uncomplicated; F11.90 Opioid use, unspecified, uncomplicated; F10.20 Alcohol dependence, uncomplicated; F31.9 Bipolar disorder, unspecified; F41.9 Anxiety disorder, unspecified; Z71.6 Tobacco abuse counseling; Z71.51 Drug abuse counseling and surveillance of drug abuser; Z88.8 Allergy status to other drugs, medicaments and biological substances; Z79.899 Other long term (current) drug therapy; Z71.41 Alcohol abuse counseling and surveillance of alcoholic
CPT/HCPCS: 83036; 84295; 84439; 84443; 87070; 87147; 87205; 99285; G0480; J1200; J1630; J2060